=== PATIENT | male | born 1965 | race Caucasian/White ===

== ENCOUNTER → 2016-08-27 | Outpatient (CLI) | payer OTHER ==
--- NOTE | 2016-08-27 11:09 | RAD ---
Indication chronic back pain AP and lateral views of the lumbar spine were obtained. A coned view targeted to the lumbosacral junction was also obtained. Vertebral height alignment and disc spaces are unremarkable. There are some minimal facet degenerative changes in the lower lumbar spine. Small osteophytes are seen at several levels. No acute finding is apparent IMPRESSION: No acute or significant finding seen involving the lumbar spine on plain film
== END | disposition home or self-care (01) ==
LOC: RAD 10:32
PROVIDERS: ATTEND Surgery
DX: M54.9 Dorsalgia, unspecified (principal); G89.29 Other chronic pain
CPT/HCPCS: 72100

== ENCOUNTER → 2017-09-28 | Outpatient (CLI) | payer OTHER | END | disposition home or self-care (01) | LOC: PF 09:53 | DX: R06.02 Shortness of breath (principal) | CPT/HCPCS: 71046; 94010; 94729 ==